=== PATIENT | male | born 1960 | race Caucasian/White ===

== ENCOUNTER → 2018-10-23 15:04 | Outpatient (CLI) | payer OTHER, SELFPAY ==
[2018-10-23 16:08] LABS: BUN Creatinine Ratio 17.5 (6-22); Blood Urea Nitrogen 14 mg/dL (9-20); Calcium 9.8 mg/dL (8.4-10.2); Carbon Dioxide 27 mmol/L (22-32); Chloride 103 mmol/L (98-107); Cholesterol 161 mg/dL (140-199); Estimated Glomerular Filt Rate > 60.0 mL/min (>60); Glucose 124 mg/dL (70-100); HDL Cholesterol 36 mg/dL (40-60); HEMOLYSIS < 15 (0-50); LDL Cholesterol Calculated 100 mg/dL (<100); Potassium 4.3 mmol/L (3.4-5.1); Sodium 141 mmol/L (137-145); Triglycerides 125 mg/dL (35-150)
[2018-10-23 16:22] LABS: Microalbumi Creatinin Ratio Ur 18.5 ug/mg CR (<30); Microalbumin Urine Random 1.5 mg/dL (0-1.6)
[2018-10-23 16:38] LABS: Prostate Specific Antigen Scrn 2.08 ng/mL (0.1-4.0)
== END ==
PROVIDERS: PCP Physician Assistant; Visit Provider Physician Assistant
DX: I10 Essential (primary) hypertension (principal); R73.01 Impaired fasting glucose; Z13.220 Encounter for screening for lipoid disorders; Z13.6 Encounter for screening for cardiovascular disorders; Z12.5 Encounter for screening for malignant neoplasm of prostate
CPT/HCPCS: 36415; 80048; 80061; 82043; 82570; G0103

== ENCOUNTER → 2019-11-05 12:37 | Outpatient (CLI) | payer OTHER, SELFPAY ==
[2019-11-05 13:37] LABS: Hematocrit 42.9 % (41-53); Hemoglobin 14.7 g/dL (13.5-17.5); Mean Corpuscular HGB Conc 34.4 % (30-36); Mean Corpuscular Hemoglobin 30.7 PG (26-34); Mean Corpuscular Volume 89.3 fL (80-100); Platelet Count 229 X10^3/uL (150-400); Red Cell Distribution Width 13.9 % (11.6-14.8); White Blood Cell Count 5.3 X10^3/uL (4.5-11.0)
[2019-11-05 13:45] LABS: Hemoglobin A1C% w Est Avg Glu 6.4 % (4.0-6.0)
[2019-11-05 14:59] LABS: Alanine Aminotransferase 50 IU/L (<50); Albumin 4.5 g/dL (3.5-5.0); Albumin Globulin Ratio 1.6 (1.0-2.8); Alkaline Phosphatase 57 U/L (38-126); Aspartate Aminotransferase 27 IU/L (17-59); BUN Creatinine Ratio 16.8 (6-22); Bilirubin Total 0.5 mg/dL (0.2-1.3); Blood Urea Nitrogen 16 mg/dL (9-20); Calcium 9.5 mg/dL (8.4-10.2); Carbon Dioxide 24 mmol/L (22-32); Chloride 103 mmol/L (98-107); Cholesterol 157 mg/dL (140-199); Estimated Glomerular Filt Rate > 60.0 mL/min (>60); Globulin 2.9 g/dL (1.7-4.1); Glucose 133 mg/dL (70-100); HDL Cholesterol 37 mg/dL (40-60); HEMOLYSIS < 15 (0-50); LDL Cholesterol Calculated 89 mg/dL (<100); Potassium 4.4 mmol/L (3.4-5.1); Sodium 138 mmol/L (137-145); Total Protein 7.4 g/dL (6.3-8.2); Triglycerides 153 mg/dL (35-150)
[2019-11-05 15:35] LABS: TSH w/ Reflex to FT4 1.45 uIU/mL (0.47-4.68)
== END ==
PROVIDERS: PCP Registered Nurse Diabetes Educator; Referring Provider Registered Nurse Diabetes Educator; Visit Provider Registered Nurse Diabetes Educator
DX: I10 Essential (primary) hypertension (principal); R73.01 Impaired fasting glucose
CPT/HCPCS: 36415; 80053; 80061; 83036; 84443; 85027

== ENCOUNTER → 2019-11-27 11:28 | Outpatient (CLI) | payer OTHER, SELFPAY ==
[2019-11-27 12:53] LABS: Glucose 137 mg/dL (70-100)
[2019-11-27 12:58] LABS: Creatinine Urine Random 192.6 mg/dL
[2019-11-27 13:11] LABS: Microalbumi Creatinin Ratio Ur 10.9 ug/mg CR (<30); Microalbumin Urine Random 2.1 mg/dL (0-1.6)
== END ==
PROVIDERS: PCP Registered Nurse Diabetes Educator; Referring Provider Registered Nurse Diabetes Educator; Visit Provider Registered Nurse Diabetes Educator
DX: R73.01 Impaired fasting glucose (principal); I10 Essential (primary) hypertension
CPT/HCPCS: 36415; 82043; 82570; 82947

== ENCOUNTER → 2020-01-21 15:05 | Outpatient (CLI) | payer OTHER, SELFPAY ==
[2020-01-21 15:56] LABS: BUN Creatinine Ratio 22.5 (6-22); Blood Urea Nitrogen 23 mg/dL (9-20); Calcium 9.4 mg/dL (8.4-10.2); Carbon Dioxide 29 mmol/L (22-32); Chloride 103 mmol/L (98-107); Estimated Glomerular Filt Rate > 60.0 mL/min (>60); Glucose 172 mg/dL (70-100); HEMOLYSIS < 15 (0-50); Magnesium 1.9 mg/dL (1.6-2.3); Potassium 4.1 mmol/L (3.4-5.1); Sodium 137 mmol/L (137-145)
[2020-01-26 23:24] LABS: Metanephrine,Plasma 32.5 pg/mL (0.0-88.0)
[2020-02-03 01:13] LABS: Renin Activity 1.195 ng/mL/hr (0.167-5.380)
== END ==
PROVIDERS: PCP Registered Nurse Diabetes Educator; Referring Provider Registered Nurse Diabetes Educator; Visit Provider Nurse Practitioner
DX: I10 Essential (primary) hypertension (principal); I49.3 Ventricular premature depolarization
CPT/HCPCS: 36415; 80048; 82088; 83735; 83835; 84244

== ENCOUNTER → 2020-02-24 08:32 | Outpatient (CLI) | payer OTHER, SELFPAY ==
[2020-02-24 10:29] LABS: COVID19 -Nasal RAPID Negative (Negative)
== END ==
PROVIDERS: PCP Registered Nurse Diabetes Educator; Visit Provider Physician Assistant
DX: Z11.59 Encounter for screening for other viral diseases (principal)
CPT/HCPCS: 87635

== ENCOUNTER → 2020-05-06 10:31 | Outpatient (CLI) | payer OTHER, SELFPAY ==
[2020-05-06 13:17] LABS: Hemoglobin A1C% w Est Avg Glu 6.5 % (4.0-6.0)
== END ==
PROVIDERS: PCP Registered Nurse Diabetes Educator; Referring Provider Registered Nurse Diabetes Educator; Visit Provider Registered Nurse Diabetes Educator
DX: E11.9 Type 2 diabetes mellitus without complications (principal)
CPT/HCPCS: 36415; 83036

== ENCOUNTER → 2020-11-10 09:43 | Outpatient (CLI) | payer OTHER, SELFPAY ==
--- NOTE | 2020-11-10 12:20 | DI.RAD.S_ITS ---
PROCEDURE: XR SHOULDER LT MIN 2V INDICATIONS: eval L shoulder pain s/p lifting injury 3 wks ago TECHNIQUE: 2 views of the shoulder were acquired. COMPARISON: CR, CHEST 2 VIEW, 12/07/2011, 11:07. FINDINGS: Bones: No fractures or dislocations. No suspicious bony lesions. Visualized ribs appear intact. Soft tissues: No suspicious soft tissue calcifications. IMPRESSION: No definite radiographic abnormality. If pain persists with conservative management, consider cross sectional imaging such as CT or MRI for further assessment. Dictated by: Cruz Beckman [facility] Interpreted: Dontae Smalls MD on 11/10/2020 at 13:33 Transcribed by: MARSHA on 11/10/2020 at 13:34 Approved by: Evgeny Smalls M.D. on 11/14/2020 at 9:37
== END ==
PROVIDERS: PCP Registered Nurse Diabetes Educator; Referring Provider Registered Nurse Diabetes Educator; Visit Provider Registered Nurse Diabetes Educator
DX: M25.512 Pain in left shoulder (principal); S49.92XA Unspecified injury of left shoulder and upper arm, initial encounter; X50.0XXA Overexertion from strenuous movement or load, initial encounter
CPT/HCPCS: 73030

== ENCOUNTER 2020-12-02 16:32 | Emergency (ER) | payer OTHER, SELFPAY ==
[2020-12-02 16:49] VITALS: BP 212/110; PULSE 104; RESP 20; TEMP 37; O2SAT 99; BMI 32.5
--- NOTE | 2020-12-02 16:53 | DI.RAD.S_ITS ---
PROCEDURE: XR CHEST 2V INDICATIONS: shortness of breath TECHNIQUE: 2 views of the chest were acquired. COMPARISON: None. FINDINGS: Surgical changes and devices: None. Lungs and pleura: Lungs are clear. No pleural effusions or pneumothorax. Mediastinum: Mediastinal contours are normal. Heart size is normal. Bones and chest wall: No suspicious bony abnormalities. Soft tissues appear unremarkable. IMPRESSION: No acute cardiopulmonary abnormality. Dictated by: Delgado Harris M.D. on 12/02/2020 at 16:59 Approved by: Delgado Harris M.D. on 12/02/2020 at 16:59
[2020-12-02 17:00] VITALS: BP 166/97; PULSE 97; RESP 18; O2SAT 100
[2020-12-02 17:20] LABS: COVID19 -Nasal RAPID Negative (Negative)
[2020-12-02 17:43] LABS: Add Manual Diff / Slide Review NO; Basophils Absolute Auto 100 /uL (0-100); Basophils Percent Auto 0.9 % (0-2); Eosinophils Absolute Auto 100 /uL (0-450); Eosinophils Percent Auto 1.3 % (2-4); Hematocrit 41.7 % (41-53); Hemoglobin 14.3 g/dL (13.5-17.5); Lymphocytes Absolute Auto 1000 /uL (1100-4500); Lymphocytes Percent Auto 17.1 % (25-40); Mean Corpuscular HGB Conc 34.2 % (30-36); Mean Corpuscular Hemoglobin 30.6 PG (26-34); Mean Corpuscular Volume 89.6 fL (80-100); Monocytes Absolute Auto 800 /uL (0-900); Monocytes Percent Auto 13.2 % (3-14); Neutrophils Absolute Auto 4100 /uL (1500-7000); Neutrophils Percent Auto 67.5 % (50-75); Platelet Count 238 X10^3/uL (150-400); Red Blood Cell Count 4.66 X10^6/uL (4.5-5.9); Red Cell Distribution Width 13.7 % (11.6-14.8); White Blood Cell Count 6.1 X10^3/uL (4.5-11.0)
[2020-12-02 17:45] VITALS: BP 159/90; PULSE 99; RESP 18; O2SAT 100
[2020-12-02 17:45] LABS: Lactate (Lactic Acid) 1.7 mmol/L (0.7-2.1)
[2020-12-02 17:46] LABS: Alanine Aminotransferase 45 IU/L (<50); Albumin 4.6 g/dL (3.5-5.0); Albumin Globulin Ratio 1.5 (1.0-2.8); Alkaline Phosphatase 40 U/L (38-126); Aspartate Aminotransferase 27 IU/L (17-59); BUN Creatinine Ratio 25.9 (6-22); Bilirubin Total 0.2 mg/dL (0.2-1.3); Blood Urea Nitrogen 22 mg/dL (9-20); Calcium 9.6 mg/dL (8.4-10.2); Carbon Dioxide 25 mmol/L (22-32); Chloride 106 mmol/L (98-107); Estimated Glomerular Filt Rate > 60.0 mL/min (>60); Glucose 172 mg/dL (70-100); HEMOLYSIS < 15 (0-50); Potassium 4.1 mmol/L (3.4-5.1); Sodium 139 mmol/L (137-145); Total Protein 7.6 g/dL (6.3-8.2)
--- NOTE | 2020-12-02 18:21 | ED_ITS ---
HPI - General Adult <Cruz Rowell PA-C - Last Filed: 12/02/20 19:28> General Chief complaint: Hypertension Stated complaint: high blood pressure x1 day Time Seen by Provider: 12/02/20 17:54 History of Present Illness HPI narrative: Marco Antonio presents today with chief complaint of elevated blood pressure that he noticed this morning after waking up. He reports that he checks it regularly and has noticed that his blood pressure was elevated. He denies any significant symptoms including denying any headache, chest pain, increased shortness of breath, decreased exertional capacity, nausea, diaphoresis, or any other acute concerns or complaints at this time. He has past medical history of chronic hypertension and is on multiple medications. He reports that he has been taking these as prescribed. Related Data Home Medications Medication Instructions Recorded Confirmed glucos sul [id number] PO 09/10/19 11/10/20 [Glucosamine Chondroitin] melatonin PO 09/10/19 11/10/20 Previous Rx's Medication Instructions Recorded bupropion HCl 300 mg 24 hr tablet, 300 mg PO QDAY #90 tab 10/20/20 extended release felodipine 5 mg tablet,extended 10 mg PO DAILY #180 tab NS 10/20/20 release 24 hr hydrochlorothiazide 12.5 mg tablet 12.5 mg PO QAM #90 tab 10/20/20 lisinopril 20 mg tablet 20 mg PO BID #180 tab 10/20/20 metformin 500 mg 24 hr 500 mg PO DAILY #90 tab 10/20/20 tablet,extended release metoprolol succinate 50 mg 50 mg PO BID #180 tab 10/20/20 tablet,extended release 24 hr lorazepam 2 mg tablet 4 mg PO BEDTIME PRN #60 tab 11/03/20 meloxicam 15 mg tablet (Mobic) 15 mg PO DAILY #30 tab 11/10/20 Allergies Allergy/AdvReac Type Severity Reaction Status Date / Time pseudoephedrine Allergy Severe LOOPY Verified 11/10/20 11:01 [From ACTIFED] HECK, EXTREMELY NAUSEATED triprolidine [From ACTIFED] Allergy Severe LOOPY Verified 11/10/20 11:01 HECK, EXTREMELY NAUSEATED chlorpheniramine Allergy Unknown Patient Verified 11/10/20 11:01 [CHLORPHENIRAMINE] can't remember phenylephrine [PHENYLEPHRINE] Allergy Unknown Patient Verified 11/10/20 11:01 can't remember Review of Systems <Cruz Rowell PA-C - Last Filed: 12/02/20 19:28> Review of Systems Narrative: As per HPI Patient History <Cruz Rowell PA-C - Last Filed: 12/02/20 19:28> Medical History Anxiety (Unknown) Depression (Unknown) Diabetes mellitus type 2, controlled, without complications Dyslipidemia History of ETOH abuse (Unknown) Hypertension (Unknown) IBS (irritable bowel syndrome) Obesity Resistant hypertension Surgical History History of bladder surgery (Unknown) Hx of cholecystectomy (Unknown) Family History Father Diabetes mellitus type 2, insulin dependent Essential hypertension Social History Smoking Status: Former smoker Tobacco: How many years used: 6 second hand exposure: No alcohol intake: former substance use type: does not use Smoking Status: Former smoker Exam <Cruz Rowell PA-C - Last Filed: 12/02/20 19:28> Narrative Exam Narrative: Exam Narrative: Const General: cooperative, healthy appearing, comfortable, no acute distress, well developed and well groomed Nutritional Appearance: Elevated BMI Orientation: alert and oriented x3 HENMT Head: normal to inspection and atraumatic Ears: hearing grossly normal bilaterally Nose: external nose normal and nares normal Face and sinus: normal facial exam Neck Neck: normal visual inspection and supple Resp Effort & Inspection: normal respiratory effort, able to speak in complete sentences, no audible wheezes, not labored, no nasal flaring and no respiratory distress, clear to auscultation bilaterally Cardiac Regular rate and rhythm, no discernible murmurs, rubs or gallops Neuro General: alert, oriented x3, gait normal, tone normal and moves all extremities, cranial nerves 2-12 grossly intact, normal coordination Cognition: normal cognition Speech: speech normal Gait: normal gait Psych Appearance: grossly normal and well kempt Mental Status: mental status grossly normal Speech and Movement: speech and movement normal Mood: congruent mood Affect: normal affect Initial Vital Signs Initial Vital Signs: Vital Signs Temperature 98.6 F 12/02/20 16:49 Pulse Rate 104 H 12/02/20 16:49 Respiratory Rate 20 12/02/20 16:49 Blood Pressure 212/110 H 12/02/20 16:49 Pulse Oximetry 99 12/02/20 16:49 <Marge Montana DO - Last Filed: 12/04/20 15:18> Initial Vital Signs Initial Vital Signs: Vital Signs Temperature 98.6 F 12/02/20 16:49 Pulse Rate 104 H 12/02/20 16:49 Respiratory Rate 20 12/02/20 16:49 Blood Pressure 212/110 H 12/02/20 16:49 Pulse Oximetry 99 12/02/20 16:49 Course <Cruz Rowell PA-C - Last Filed: 12/02/20 19:28> Orders Ordered: ED Orders 12/02/20 16:53 XR chest 2V Stat EKG-12 Lead Stat Measure peak expiratory flow ONCE RT Consult Eval and Treat Now 12/02/20 16:55 COVID19 -Nasal swab/Pre-Proc Stat 12/02/20 17:20 Complete Blood Count AUTO DIFF Stat Comprehensive Metabolic Panel Stat Lactate (Lactic Acid) Stat Vital Signs Vital signs: Vital Signs - 8 hr 12/02/20 16:49 12/02/20 17:00 12/02/20 17:45 Temperature 98.6 F Pulse Rate 104 H 97 H 99 H Respiratory Rate 20 18 18 Blood Pressure 212/110 H 166/97 H 159/90 H Pulse Oximetry 99 100 100 12/02/20 18:23 12/02/20 18:53 12/02/20 19:21 Temperature Pulse Rate 98 H 93 H 78 Respiratory Rate 18 18 16 Blood Pressure 159/98 H 180/107 H 167/94 H Pulse Oximetry 100 100 96 <DO Awilda Xavier Last Filed: 12/04/20 15:18> Orders Ordered: ED Orders 12/02/20 16:53 XR chest 2V Stat EKG-12 Lead Stat Measure peak expiratory flow ONCE RT Consult Eval and Treat Now 12/02/20 16:55 COVID19 -Nasal swab/Pre-Proc Stat 12/02/20 17:20 Complete Blood Count AUTO DIFF Stat Comprehensive Metabolic Panel Stat Lactate (Lactic Acid) Stat Vital Signs Vital signs: Vital Signs - 8 hr 12/02/20 16:49 12/02/20 17:00 12/02/20 17:45 Temperature 98.6 F Pulse Rate 104 H 97 H 99 H Respiratory Rate 20 18 18 Blood Pressure 212/110 H 166/97 H 159/90 H Pulse Oximetry 99 100 100 12/02/20 18:23 12/02/20 18:53 12/02/20 19:21 Temperature Pulse Rate 98 H 93 H 78 Respiratory Rate 18 18 16 Blood Pressure 159/98 H 180/107 H 167/94 H Pulse Oximetry 100 100 96 Medical Decision Making <Cruz Rowell PA-C - Last Filed: 12/02/20 19:28> Lab Data Result diagrams: 12/02/20 17:20 12/02/20 17:20 Labs: Lab Results 12/02/20 12/02/20 12/02/20 Range/Units 16:55 17:20 17:20 WBC 6.1 (4.5-11.0) X10^3/uL RBC 4.66 (4.5-5.9) X10^6/uL Hgb 14.3 (13.5-17.5) g/dL Hct 41.7 (41-53) % MCV 89.6 (80-100) fL MCH 30.6 (26-34) PG MCHC 34.2 (30-36) % RDW 13.7 (11.6-14.8) % Plt Count 238 (150-400) X10^3/uL Neut % (Auto) 67.5 (50-75) % Lymph % (Auto) 17.1 L (25-40) % [place] % (Auto) 13.2 (3-14) % Eos % (Auto) 1.3 L (2-4) % Baso % (Auto) 0.9 (0-2) % Neut # (Auto) 4100 (3882-3886) /uL Lymph # (Auto) 1000 L (2682-3998) /uL [place] # (Auto) 800 (0-900) /uL Eos # (Auto) 100 (0-450) /uL Baso # (Auto) 100 (0-100) /uL Sodium 139 (137-145) mmol/L Potassium 4.1 (3.4-5.1) mmol/L Chloride 106 (98-107) mmol/L Carbon Dioxide 25 (22-32) mmol/L BUN 22 H (9-20) mg/dL Creatinine 0.85 (0.66-1.25) mg/dL Estimated GFR > 60.0 (>60) mL/min BUN/Creatinine Ratio 25.9 H (6-22) Glucose 172 H (70-100) mg/dL Lactate (0.7-2.1) mmol/L Calcium 9.6 (8.4-10.2) mg/dL Total Bilirubin 0.2 (0.2-1.3) mg/dL AST 27 (17-59) IU/L ALT 45 (<50) IU/L Alkaline Phosphatase 40 (38-126) U/L Total Protein 7.6 (6.3-8.2) g/dL Albumin 4.6 (3.5-5.0) g/dL Globulin 3.0 (1.7-4.1) g/dL Albumin/Globulin Ratio 1.5 (1.0-2.8) SARS-CoV-2 (PCR) Negative (Negative) 12/02/20 Range/Units 17:20 WBC (4.5-11.0) X10^3/uL RBC (4.5-5.9) X10^6/uL Hgb (13.5-17.5) g/dL Hct (41-53) % MCV (80-100) fL MCH (26-34) PG MCHC (30-36) % RDW (11.6-14.8) % Plt Count (150-400) X10^3/uL Neut % (Auto) (50-75) % Lymph % (Auto) (25-40) % [place] % (Auto) (3-14) % Eos % (Auto) (2-4) % Baso % (Auto) (0-2) % Neut # (Auto) (8113-7486) /uL Lymph # (Auto) (1046-6425) /uL [place] # (Auto) (0-900) /uL Eos # (Auto) (0-450) /uL Baso # (Auto) (0-100) /uL Sodium (137-145) mmol/L Potassium (3.4-5.1) mmol/L Chloride (98-107) mmol/L Carbon Dioxide (22-32) mmol/L BUN (9-20) mg/dL Creatinine (0.66-1.25) mg/dL Estimated GFR (>60) mL/min BUN/Creatinine Ratio (6-22) Glucose (70-100) mg/dL Lactate 1.7 (0.7-2.1) mmol/L Calcium (8.4-10.2) mg/dL Total Bilirubin (0.2-1.3) mg/dL AST (17-59) IU/L ALT (<50) IU/L Alkaline Phosphatase (38-126) U/L Total Protein (6.3-8.2) g/dL Albumin (3.5-5.0) g/dL Globulin (1.7-4.1) g/dL Albumin/Globulin Ratio (1.0-2.8) SARS-CoV-2 (PCR) (Negative) MDM Narrative Medical decision making narrative: Patient is well-appearing at this time. He denies any significant symptoms that would suggest end-organ damage. Blood pressure is elevated but not significantly so here in the emergency department. He reports that he ate a large meal of pizza yesterday and thinks that the increased sodium could have contributed to his symptoms. His blood pressure has usually been well controlled. I do not suspect any significant cardiac injury or neuro damage at this time. Strict ER return precautions were discussed with the patient. <Marge Montana, DO - Last Filed: 12/04/20 15:18> Lab Data Labs: Lab Results 12/02/20 12/02/20 12/02/20 Range/Units 16:55 17:20 17:20 WBC 6.1 (4.5-11.0) X10^3/uL RBC 4.66 (4.5-5.9) X10^6/uL Hgb 14.3 (13.5-17.5) g/dL Hct 41.7 (41-53) % MCV 89.6 (80-100) fL MCH 30.6 (26-34) PG MCHC 34.2 (30-36) % RDW 13.7 (11.6-14.8) % Plt Count 238 (150-400) X10^3/uL Neut % (Auto) 67.5 (50-75) % Lymph % (Auto) 17.1 L (25-40) % [place] % (Auto) 13.2 (3-14) % Eos % (Auto) 1.3 L (2-4) % Baso % (Auto) 0.9 (0-2) % Neut # (Auto) 4100 (3217-2716) /uL Lymph # (Auto) 1000 L (5292-5203) /uL [place] # (Auto) 800 (0-900) /uL Eos # (Auto) 100 (0-450) /uL Baso # (Auto) 100 (0-100) /uL Sodium 139 (137-145) mmol/L Potassium 4.1 (3.4-5.1) mmol/L Chloride 106 (98-107) mmol/L Carbon Dioxide 25 (22-32) mmol/L BUN 22 H (9-20) mg/dL Creatinine 0.85 (0.66-1.25) mg/dL Estimated GFR > 60.0 (>60) mL/min BUN/Creatinine Ratio 25.9 H (6-22) Glucose 172 H (70-100) mg/dL Lactate (0.7-2.1) mmol/L Calcium 9.6 (8.4-10.2) mg/dL Total Bilirubin 0.2 (0.2-1.3) mg/dL AST 27 (17-59) IU/L ALT 45 (<50) IU/L Alkaline Phosphatase 40 (38-126) U/L Total Protein 7.6 (6.3-8.2) g/dL Albumin 4.6 (3.5-5.0) g/dL Globulin 3.0 (1.7-4.1) g/dL Albumin/Globulin Ratio 1.5 (1.0-2.8) SARS-CoV-2 (PCR) Negative (Negative) 12/02/20 Range/Units 17:20 WBC (4.5-11.0) X10^3/uL RBC (4.5-5.9) X10^6/uL Hgb (13.5-17.5) g/dL Hct (41-53) % MCV (80-100) fL MCH (26-34) PG MCHC (30-36) % RDW (11.6-14.8) % Plt Count (150-400) X10^3/uL Neut % (Auto) (50-75) % Lymph % (Auto) (25-40) % [place] % (Auto) (3-14) % Eos % (Auto) (2-4) % Baso % (Auto) (0-2) % Neut # (Auto) (8604-8973) /uL Lymph # (Auto) (3750-6085) /uL [place] # (Auto) (0-900) /uL Eos # (Auto) (0-450) /uL Baso # (Auto) (0-100) /uL Sodium (137-145) mmol/L Potassium (3.4-5.1) mmol/L Chloride (98-107) mmol/L Carbon Dioxide (22-32) mmol/L BUN (9-20) mg/dL Creatinine (0.66-1.25) mg/dL Estimated GFR (>60) mL/min BUN/Creatinine Ratio (6-22) Glucose (70-100) mg/dL Lactate 1.7 (0.7-2.1) mmol/L Calcium (8.4-10.2) mg/dL Total Bilirubin (0.2-1.3) mg/dL AST (17-59) IU/L ALT (<50) IU/L Alkaline Phosphatase (38-126) U/L Total Protein (6.3-8.2) g/dL Albumin (3.5-5.0) g/dL Globulin (1.7-4.1) g/dL Albumin/Globulin Ratio (1.0-2.8) SARS-CoV-2 (PCR) (Negative) Discharge Plan Departure Patient Disposition: Home Clinical Impression: Hypertension Qualifiers: Hypertension type: unspecified Qualified Code(s): I10 - Essential (primary) hypertension Instructions: DI for High Blood Pressure Activity Restrictions/Additional Instructions: It was very nice to meet you this evening. Please continue to take your antih ypertensive this as prescribed and follow-up with your primary care provider on Saturday. Please avoid was sodium or other large meals that could raise blood pressure. Avoid alcohol consumption. If you develop headache, chest pain, difficulty breathing or have any other acute concerns or complaints do not hesitate to return for re-evaluation. Thank you Cruz Rowell PA-C Prescriptions: No Action lorazepam 2 mg tablet 4 mg PO BEDTIME PRN (Reason: sleep) Qty: 60 RF: 2 bupropion HCl 300 mg tablet extended release 24 hr 300 mg PO QDAY Qty: 90 RF: 3 hydrochlorothiazide 12.5 mg tablet 12.5 mg PO QAM Qty: 90 RF: 0 lisinopril 20 mg tablet 20 mg PO BID Qty: 180 RF: 0 metformin 500 mg tablet,ER omar.retention 24 hr 500 mg PO DAILY Qty: 90 RF: 0 metoprolol succinate 50 mg tablet extended release 24 hr 50 mg PO BID Qty: 180 RF: 3 felodipine 5 mg tablet extended release 24 hr 10 mg PO DAILY Qty: 180 RF: 3 glucos sul [id number] PO RF: 0 melatonin PO RF: 0 meloxicam [Mobic] 15 mg tablet 15 mg PO DAILY Qty: 30 RF: 1 Referrals: Rell Brewster ARNP [Primary Care Provider] - Stand Alone Forms: Work Release Note <Marge Montana DO - Last Filed: 12/04/20 15:18> Cosign ED Attending Cosignature Attestation: I was immediately available in the department for consultation. Documentation has been reviewed.
[2020-12-02 18:23] VITALS: BP 159/98; PULSE 98; RESP 18; O2SAT 100
[2020-12-02 18:53] VITALS: BP 180/107; PULSE 93; RESP 18; O2SAT 100
[2020-12-02 19:21] VITALS: BP 167/94; PULSE 78; RESP 16; O2SAT 96
== END 2020-12-02 19:22 | disposition home or self-care (01) ==
PROVIDERS: Emergency Medicine; Emergency Provider Physician Assistant; PCP Registered Nurse Diabetes Educator
DX: I10 Essential (primary) hypertension (principal); R06.02 Shortness of breath; Z20.822 Contact with and (suspected) exposure to COVID-19
CPT/HCPCS: 36415; 71046; 80053; 83605; 85025; 87635; 93005; 93010; 99283; 99284; C9803

== ENCOUNTER → 2021-01-31 11:00 | Outpatient (CLI) | payer OTHER, SELFPAY ==
[2021-01-31 12:31] LABS: Hematocrit 40.9 % (41-53); Hemoglobin 14.2 g/dL (13.5-17.5); Mean Corpuscular HGB Conc 34.7 % (30-36); Mean Corpuscular Hemoglobin 30.9 PG (26-34); Mean Corpuscular Volume 89.2 fL (80-100); Platelet Count 256 X10^3/uL (150-400); Red Blood Cell Count 4.58 X10^6/uL (4.5-5.9); Red Cell Distribution Width 13.9 % (11.6-14.8); White Blood Cell Count 5.6 X10^3/uL (4.5-11.0)
[2021-01-31 12:33] LABS: Hemoglobin A1C% w Est Avg Glu 6.4 % (4.0-6.0)
[2021-01-31 13:07] LABS: Alanine Aminotransferase 34 IU/L (<50); Albumin 4.5 g/dL (3.5-5.0); Albumin Globulin Ratio 1.6 (1.0-2.8); Alkaline Phosphatase 37 U/L (38-126); Aspartate Aminotransferase 23 IU/L (17-59); BUN Creatinine Ratio 14.3 (6-22); Bilirubin Total 0.5 mg/dL (0.2-1.3); Blood Urea Nitrogen 16 mg/dL (9-20); Calcium 9.9 mg/dL (8.4-10.2); Carbon Dioxide 27 mmol/L (22-32); Chloride 100 mmol/L (98-107); Cholesterol 143 mg/dL (140-199); Estimated Glomerular Filt Rate > 60.0 mL/min (>60); Globulin 2.8 g/dL (1.7-4.1); Glucose 142 mg/dL (70-100); HDL Cholesterol 30 mg/dL (40-60); HEMOLYSIS < 15 (0-50); LDL Cholesterol Calculated 73 mg/dL (<100); Potassium 4.1 mmol/L (3.4-5.1); Sodium 137 mmol/L (137-145); Total Protein 7.3 g/dL (6.3-8.2); Triglycerides 200 mg/dL (35-150)
[2021-01-31 13:33] LABS: TSH w/ Reflex to FT4 1.06 uIU/mL (0.47-4.68)
== END ==
PROVIDERS: PCP Registered Nurse Diabetes Educator; Referring Provider Registered Nurse Diabetes Educator; Visit Provider Registered Nurse Diabetes Educator
DX: E11.9 Type 2 diabetes mellitus without complications (principal); I10 Essential (primary) hypertension; E78.5 Hyperlipidemia, unspecified
CPT/HCPCS: 36415; 80053; 80061; 83036; 84443; 85027

== ENCOUNTER → 2021-02-06 11:34 | Outpatient (CLI) | payer OTHER, SELFPAY ==
[2021-02-06 12:58] LABS: Creatinine Urine Random 116.9 mg/dL
[2021-02-06 13:02] LABS: Microalbumi Creatinin Ratio Ur 8.5 ug/mg CR (<30)
== END ==
PROVIDERS: PCP Registered Nurse Diabetes Educator; Referring Provider Registered Nurse Diabetes Educator; Visit Provider Registered Nurse Diabetes Educator
DX: E11.9 Type 2 diabetes mellitus without complications (principal); E78.5 Hyperlipidemia, unspecified; I10 Essential (primary) hypertension
CPT/HCPCS: 82043; 82570

== ENCOUNTER → 2021-12-27 11:30 | Outpatient (CLI) | payer OTHER, SELFPAY ==
[2021-12-27 14:26] LABS: Hematocrit 40.7 % (41-53); Mean Corpuscular HGB Conc 34.5 % (30-36); Mean Corpuscular Hemoglobin 30.6 PG (26-34); Mean Corpuscular Volume 88.7 fL (80-100); Platelet Count 237 X10^3/uL (150-400); Red Blood Cell Count 4.58 X10^6/uL (4.5-5.9); Red Cell Distribution Width 13.8 % (11.6-14.8); White Blood Cell Count 5.5 X10^3/uL (4.5-11.0)
[2021-12-27 14:52] LABS: Alanine Aminotransferase 46 IU/L (<50); Albumin 4.4 g/dL (3.5-5.0); Albumin Globulin Ratio 1.4 (1.0-2.8); Alkaline Phosphatase 42 U/L (38-126); Aspartate Aminotransferase 29 IU/L (17-59); BUN Creatinine Ratio 21.6 (6-22); Bilirubin Total 0.5 mg/dL (0.2-1.3); Blood Urea Nitrogen 19 mg/dL (9-20); Calcium 9.3 mg/dL (8.4-10.2); Carbon Dioxide 25 mmol/L (22-32); Chloride 102 mmol/L (98-107); Cholesterol 146 mg/dL (140-199); Estimated Glomerular Filt Rate > 60 mL/min (>60); Globulin 3.1 g/dL (1.7-4.1); Glucose 155 mg/dL (80-110); HDL Cholesterol 28 mg/dL (40-60); HEMOLYSIS < 15 (0-50); LDL Cholesterol Calculated 74 mg/dL (<100); Sodium 138 mmol/L (137-145); Total Protein 7.5 g/dL (6.3-8.2); Triglycerides 218 mg/dL (35-150)
[2021-12-27 14:54] LABS: Hemoglobin A1C% w Est Avg Glu 7.1 % (4.0-6.0)
[2021-12-27 15:13] LABS: TSH w/ Reflex to FT4 1.22 uIU/mL (0.47-4.68)
== END ==
PROVIDERS: PCP Registered Nurse Diabetes Educator; Referring Provider Registered Nurse Diabetes Educator; Visit Provider Registered Nurse Diabetes Educator
DX: E11.9 Type 2 diabetes mellitus without complications (principal); E78.5 Hyperlipidemia, unspecified; I10 Essential (primary) hypertension
CPT/HCPCS: 36415; 80053; 80061; 83036; 84443; 85027

== ENCOUNTER → 2022-01-01 11:27 | Outpatient (CLI) | payer OTHER, SELFPAY ==
[2022-01-01 12:44] LABS: Creatinine Urine Random 98.4 mg/dL
[2022-01-01 12:48] LABS: Microalbumin Urine Random 0.6 mg/dL (0-1.6)
== END ==
PROVIDERS: PCP Registered Nurse Diabetes Educator; Referring Provider Registered Nurse Diabetes Educator; Visit Provider Registered Nurse Diabetes Educator
DX: E11.9 Type 2 diabetes mellitus without complications (principal); E78.5 Hyperlipidemia, unspecified; I10 Essential (primary) hypertension
CPT/HCPCS: 82043; 82570

== ENCOUNTER → 2022-07-12 13:03 | Outpatient (CLI) | payer OTHER, SELFPAY ==
[2022-07-13 09:34] LABS: x Labcorp Estim. Avg Glu (eAG) 163 mg/dL (.); x Labcorp Hemoglobin A1c 7.3 % (4.8-5.6)
== END ==
PROVIDERS: PCP Registered Nurse Diabetes Educator; Referring Provider Registered Nurse Diabetes Educator; Visit Provider Registered Nurse Diabetes Educator
DX: E11.9 Type 2 diabetes mellitus without complications (principal)
CPT/HCPCS: 36415; 83036

== ENCOUNTER → 2023-02-14 11:05 | Outpatient (CLI) | payer OTHER, SELFPAY ==
[2023-02-14 12:46] LABS: Hematocrit 41.2 % (41-53); Hemoglobin 13.9 g/dL (13.5-17.5); Mean Corpuscular HGB Conc 33.8 % (30-36); Mean Corpuscular Hemoglobin 30.3 PG (26-34); Mean Corpuscular Volume 89.7 fL (80-100); Platelet Count 284 X10^3/uL (150-400); Red Blood Cell Count 4.59 X10^6/uL (4.5-5.9); Red Cell Distribution Width 14.2 % (11.6-14.8)
[2023-02-14 13:12] LABS: Alanine Aminotransferase 36 IU/L (<50); Albumin 4.3 g/dL (3.5-5.0); Albumin Globulin Ratio 1.5 (1.0-2.8); Alkaline Phosphatase 41 U/L (38-126); Aspartate Aminotransferase 23 IU/L (17-59); BUN Creatinine Ratio 22.5 (6-22); Bilirubin Total 0.6 mg/dL (0.2-1.3); Blood Urea Nitrogen 20 mg/dL (9-20); Calcium 9.9 mg/dL (8.4-10.2); Carbon Dioxide 23 mmol/L (22-32); Chloride 106 mmol/L (98-107); Cholesterol 146 mg/dL (140-199); Estimated Glomerular Filt Rate > 60 mL/min (>60); Globulin 2.9 g/dL (1.7-4.1); Glucose 162 mg/dL (80-110); HDL Cholesterol 34 mg/dL (40-60); HEMOLYSIS < 15 (0-50); LDL Cholesterol Calculated 84 mg/dL (<100); Potassium 3.7 mmol/L (3.4-5.1); Sodium 138 mmol/L (137-145); Total Protein 7.2 g/dL (6.3-8.2); Triglycerides 142 mg/dL (35-150)
[2023-02-14 13:40] LABS: TSH w/ Reflex to FT4 0.61 uIU/mL (0.47-4.68)
[2023-02-14 16:24] LABS: Creatinine Urine Random 158.7 mg/dL
[2023-02-14 16:33] LABS: Microalbumi Creatinin Ratio Ur 15.7 ug/mg CR (<30); Microalbumin Urine Random 2.5 mg/dL (0-1.6)
== END ==
PROVIDERS: PCP Registered Nurse Diabetes Educator; Referring Provider Registered Nurse Diabetes Educator; Visit Provider Registered Nurse Diabetes Educator
DX: E11.9 Type 2 diabetes mellitus without complications (principal); I10 Essential (primary) hypertension; E78.5 Hyperlipidemia, unspecified
CPT/HCPCS: 36415; 80053; 80061; 82043; 82570; 83036; 84443; 85027

== ENCOUNTER → 2023-03-06 12:52 | Outpatient (CLI) | payer OTHER, SELFPAY ==
[2023-03-06 15:34] LABS: BUN Creatinine Ratio 25.8 (6-22); Blood Urea Nitrogen 25 mg/dL (9-20); Calcium 9.9 mg/dL (8.4-10.2); Carbon Dioxide 23 mmol/L (22-32); Chloride 101 mmol/L (98-107); Estimated Glomerular Filt Rate > 60 mL/min (>60); Glucose 148 mg/dL (80-110); HEMOLYSIS < 15 (0-50); Potassium 3.4 mmol/L (3.4-5.1); Sodium 137 mmol/L (137-145)
== END ==
PROVIDERS: PCP Registered Nurse Diabetes Educator; Referring Provider Registered Nurse Diabetes Educator; Visit Provider Registered Nurse Diabetes Educator
DX: I10 Essential (primary) hypertension (principal)
CPT/HCPCS: 36415; 80048

== ENCOUNTER → 2023-04-19 09:45 | Outpatient (CLI) | payer OTHER, SELFPAY ==
[2023-04-19 10:36] LABS: HEMOLYSIS < 15 (0-50); Potassium 3.9 mmol/L (3.4-5.1)
[2023-04-19 10:37] LABS: BUN Creatinine Ratio 26.7 (6-22); Blood Urea Nitrogen 23 mg/dL (9-20); Calcium 9.2 mg/dL (8.4-10.2); Carbon Dioxide 27 mmol/L (22-32); Chloride 101 mmol/L (98-107); Estimated Glomerular Filt Rate > 60 mL/min (>60); Glucose 209 mg/dL (80-110); Sodium 137 mmol/L (137-145)
== END ==
LOC: LAB 09:45
PROVIDERS: PCP Registered Nurse Diabetes Educator; Referring Provider Registered Nurse Diabetes Educator; Visit Provider Registered Nurse Diabetes Educator
DX: I10 Essential (primary) hypertension (principal)
CPT/HCPCS: 36415; 80048

== ENCOUNTER → 2023-10-04 11:28 | Outpatient (CLI) | payer OTHER, SELFPAY ==
[2023-10-04 14:28] LABS: Hemoglobin A1C% w Est Avg Glu 7.5 % (4.0-6.0)
== END ==
LOC: LAB 11:30
PROVIDERS: PCP Registered Nurse Diabetes Educator; Referring Provider Registered Nurse Diabetes Educator; Visit Provider Registered Nurse Diabetes Educator
DX: E11.42 Type 2 diabetes mellitus with diabetic polyneuropathy (principal)
CPT/HCPCS: 36415; 83036

== ENCOUNTER → 2024-04-22 15:42 | Outpatient (CLI) | payer OTHER, SELFPAY ==
[2024-04-22 18:21] LABS: Influenza A - CEPHEID Flu A NEGATIVE (NEGATIVE); Influenza B - CEPHEID Flu B POSITIVE (NEGATIVE); Respiratory Syncytial Virus Negative (Negative)
[2024-04-22 18:35] LABS: COVID-19 CEPHEID 4-PLEX PCR Negative (Negative)
== END ==
PROVIDERS: PCP Registered Nurse Diabetes Educator; Visit Provider Registered Nurse Diabetes Educator
DX: R05.1 Acute cough (principal); R50.9 Fever, unspecified
CPT/HCPCS: 0241U

== ENCOUNTER → 2024-06-24 09:01 | Outpatient (CLI) | payer OTHER, SELFPAY ==
--- NOTE | 2024-06-24 09:03 | DI.RAD.S_ITS ---
PROCEDURE: XR HAND LT MIN 3V INDICATIONS: Left hand pain TECHNIQUE: Three views of the hand(s) acquired. COMPARISON: None. FINDINGS: Bones: Normal mineralization. No visible acute fractures. There is moderate to severe 1st IP joint space loss. Moderate spurring and articular surface irregularity at the 1st MCP, and severe hypertrophic osteophytosis, cystic changes, and joint space loss at the 1st CMC joint. Other joint spaces are fairly well maintained. Soft tissues: There is prominent soft tissue swelling around the 1st digit and thenar eminence. There are a few small calcifications in the tissues medial to the 1st proximal phalanx. No soft tissue gas. IMPRESSION: Moderate to severe arthritic changes involving the 1st digit. Diffuse 1st digit soft tissue swelling without soft tissue gas. This may indicate inflammatory arthritis or unrelated cellulitis. Correlate clinically. Dictated by: Darling Waller M.D. on 06/24/2024 at 9:41 Approved by: Darling Waller M.D. on 06/24/2024 at 9:43
== END ==
PROVIDERS: PCP Registered Nurse Diabetes Educator; Referring Provider Registered Nurse; Visit Provider Registered Nurse
DX: M79.89 Other specified soft tissue disorders (principal); M79.642 Pain in left hand
CPT/HCPCS: 73130

== ENCOUNTER → 2024-07-21 11:19 | Outpatient (CLI) | payer OTHER, SELFPAY ==
[2024-07-21 12:14] LABS: Hematocrit 39.4 % (41-53); Hemoglobin 13.6 g/dL (13.5-17.5); Mean Corpuscular HGB Conc 34.5 % (30-36); Mean Corpuscular Hemoglobin 30.5 PG (26-34); Mean Corpuscular Volume 88.5 fL (80-100); Platelet Count 267 X10^3/uL (150-400); Red Blood Cell Count 4.45 X10^6/uL (4.5-5.9); Red Cell Distribution Width 14.6 % (11.6-14.8); White Blood Cell Count 5.1 X10^3/uL (4.5-11.0)
[2024-07-21 12:51] LABS: Alanine Aminotransferase 34 IU/L (<50); Albumin 4.3 g/dL (3.5-5.0); Albumin Globulin Ratio 1.7 (1.0-2.8); Alkaline Phosphatase 49 U/L (38-126); Aspartate Aminotransferase 27 IU/L (17-59); BUN Creatinine Ratio 23.2 (6-22); Bilirubin Total 0.5 mg/dL (0.2-1.3); Blood Urea Nitrogen 19 mg/dL (9-20); Calcium 9.8 mg/dL (8.4-10.2); Carbon Dioxide 24 mmol/L (22-32); Chloride 103 mmol/L (98-107); Cholesterol 129 mg/dL (140-199); Estimated Glomerular Filt Rate > 60 mL/min (>60); Globulin 2.6 g/dL (1.7-4.1); Glucose 183 mg/dL (70-99); HDL Cholesterol 32 mg/dL (40-60); HEMOLYSIS < 15 (0-50); LDL Cholesterol Calculated 62 mg/dL (<100); Potassium 4.5 mmol/L (3.4-5.1); Sodium 138 mmol/L (137-145); Total Protein 6.9 g/dL (6.3-8.2); Triglycerides 174 mg/dL (35-150)
[2024-07-21 13:09] LABS: Hemoglobin A1C% w Est Avg Glu 7.3 % (4.0-6.0)
[2024-07-21 13:17] LABS: TSH w/ Reflex to FT4 0.97 uIU/mL (0.47-4.68)
[2024-07-21 22:36] LABS: Creatinine Urine Random 104.91 mg/dL
[2024-07-21 22:41] LABS: Microalbumin Urine Random 1.9 mg/dL (0-1.6)
[2024-07-22 16:13] LABS: C-Reactive Protein Quant < 0.5 mg/dL (<1.0); Uric Acid 4.3 mg/dL (3.5-8.5)
[2024-07-22 16:15] LABS: Rheumatoid Factor < 8.6 IU/mL (<12.0)
[2024-07-22 16:16] LABS: Add Manual Diff / Slide Review NO; Basophils Absolute Auto 100 /uL (0-100); Basophils Percent Auto 1.2 % (0-2); Eosinophils Absolute Auto 100 /uL (0-450); Eosinophils Percent Auto 1.9 % (2-4); Lymphocytes Absolute Auto 1000 /uL (1100-4500); Lymphocytes Percent Auto 18.4 % (25-40); Monocytes Absolute Auto 400 /uL (0-900); Monocytes Percent Auto 7.4 % (3-14); Neutrophils Absolute Auto 3800 /uL (1500-7000); Neutrophils Percent Auto 71.1 % (50-75)
== END ==
LOC: LAB 11:21
PROVIDERS: PCP Registered Nurse Diabetes Educator; Referring Provider Registered Nurse Diabetes Educator; Visit Provider Registered Nurse Diabetes Educator
DX: E11.42 Type 2 diabetes mellitus with diabetic polyneuropathy (principal); I10 Essential (primary) hypertension; E78.5 Hyperlipidemia, unspecified
CPT/HCPCS: 36415; 80053; 80061; 82043; 82570; 83036; 84443; 84550; 85025; 85027; 86140; 86430

== ENCOUNTER → 2024-07-22 15:53 | Outpatient (CLI) | payer SELFPAY ==
--- NOTE | 2024-07-22 16:33 | DI.RAD.S_ITS ---
PROCEDURE: XR FINGER LT MIN 2V INDICATIONS: reeval L thumb pain/swelling TECHNIQUE: PA hand, 2 views of the thumb acquired. COMPARISON: [facility], CR, XR HAND LT MIN 3V, 06/24/2024, 9:12. FINDINGS: Bones: . Tail are rotations are seen at the 1st interphalangeal joint with a small displaced bony fragment along the radial aspect of the 1st proximal phalangeal head. Moderate to severe degenerative changes of the 1st carpometacarpal joint. Soft tissues: Diffuse soft tissue swelling in the thumb. IMPRESSION: Persistent diffuse soft tissue swelling in the thumb. New periarticular erosions at the 1st interphalangeal joint with mild osseous fragmentation. Findings are suspicious for an ongoing infectious or inflammatory process. Approved by: Delgado Harris M.D. on 07/22/2024 at 16:55
== END ==
LOC: LAB 15:58 → DI 16:34
PROVIDERS: PCP Registered Nurse Diabetes Educator; Referring Provider Registered Nurse Diabetes Educator; Visit Provider Registered Nurse Diabetes Educator
DX: M79.645 Pain in left finger(s) (principal); M79.89 Other specified soft tissue disorders
CPT/HCPCS: 73140

== ENCOUNTER → 2024-07-30 14:04 | Outpatient (CLI) | payer SELFPAY ==
[2024-07-30 14:31] LABS: Add Manual Diff / Slide Review NO; Basophils Absolute Auto 100 /uL (0-100); Basophils Percent Auto 1.2 % (0-2); Eosinophils Absolute Auto 100 /uL (0-450); Eosinophils Percent Auto 1.9 % (2-4); Hemoglobin 14.1 g/dL (13.5-17.5); Lymphocytes Absolute Auto 1100 /uL (1100-4500); Lymphocytes Percent Auto 19.3 % (25-40); Mean Corpuscular HGB Conc 35.2 % (30-36); Mean Corpuscular Volume 88.1 fL (80-100); Monocytes Absolute Auto 600 /uL (0-900); Monocytes Percent Auto 10.4 % (3-14); Neutrophils Absolute Auto 3900 /uL (1500-7000); Neutrophils Percent Auto 67.2 % (50-75); Platelet Count 285 X10^3/uL (150-400); Red Blood Cell Count 4.54 X10^6/uL (4.5-5.9); Red Cell Distribution Width 14.5 % (11.6-14.8); White Blood Cell Count 5.8 X10^3/uL (4.5-11.0)
[2024-07-30 14:38] LABS: Hemoglobin A1C% w Est Avg Glu 7.1 % (4.0-6.0)
[2024-07-30 14:50] LABS: C-Reactive Protein Quant < 0.5 mg/dL (<1.0); Rheumatoid Factor < 8.6 IU/mL (<12.0); Uric Acid 4.4 mg/dL (3.5-8.5)
== END ==
PROVIDERS: PCP Registered Nurse Diabetes Educator; Referring Provider Registered Nurse Diabetes Educator; Visit Provider Registered Nurse Diabetes Educator
DX: M79.645 Pain in left finger(s) (principal); E11.42 Type 2 diabetes mellitus with diabetic polyneuropathy; D64.9 Anemia, unspecified
CPT/HCPCS: 36415; 83036; 84550; 85025; 86140; 86430

== ENCOUNTER → 2024-12-25 14:59 | Outpatient (CLI) | payer OTHER, SELFPAY ==
[2024-12-25 15:29] LABS: Hemoglobin A1C% w Est Avg Glu 7.4 % (4.0-6.0)
== END ==
PROVIDERS: PCP Registered Nurse Diabetes Educator; Referring Provider Registered Nurse Diabetes Educator; Visit Provider Registered Nurse Diabetes Educator
DX: E11.42 Type 2 diabetes mellitus with diabetic polyneuropathy (principal)
CPT/HCPCS: 36415; 83036